=== PATIENT | male | born 1995 | race African-American/Black ===

== ENCOUNTER 2019-04-23 18:32 | Emergency (ER) | payer SELFPAY ==
--- NOTE | 2019-04-23 19:04 | EDM.PDOC ---
ED HPI GENERAL MEDICAL PROBLEM - General Chief Complaint: Respiratory Problem Stated Complaint: COUGH Time Seen by Provider: 04/23/19 18:58 - History of Present Illness INITIAL COMMENTS - FREE TEXT/NARRATIVE: 23-year-old male presents the emergency room with worsening cough. Patient thinks he has been exposed to the flu. He has had a worsening cough over the last 4 days he is not aware of any fevers or chills. The cough is somewhat dry and irritating. He does not believe he had a flu shot this year. Patient significant other is doing better with Phenergan and codeine and he was hoping to get a little bit of this we can get some rest at night. Throat Pain Score (Numeric/FACES): 3 - Related Data Allergies Allergy/AdvReac Type Severity Reaction Status Date / Time No Known Allergies Allergy Verified 04/23/19 18:46 Home Meds: Home Meds Codeine/Promethazine [Phenergan with Codeine] 5 ml PO Q4HR #80 cup 04/23/19 [Rx] Past Medical History - Past Health History Medical/Surgical History: Denies Medical/Surgical History - Past Surgical History HEENT Surgical History: Reports: Other (See Below) Other HEENT Surgeries/Procedures: root canal Social & Family History - Tobacco Use Smoking Status *Q: Never Smoker Second Hand Smoke Exposure: No - Caffeine Use Caffeine Use: Reports: None - Recreational Drug Use Recreational Drug Use: No ED ROS GENERAL - Review of Systems Review Of Systems: See Below Constitutional: Reports: No Symptoms HEENT: Reports: No Symptoms Respiratory: Reports: Cough. Denies: Shortness of Breath, Sputum Cardiovascular: Reports: No Symptoms Endocrine: Reports: No Symptoms GI/Abdominal: Reports: No Symptoms ED EXAM, GENERAL - Physical Exam Exam: See Below Exam Limited By: No Limitations General Appearance: Alert, No Apparent Distress Eye Exam: Bilateral Eye: Normal Inspection Ears: Normal External Exam, Normal Canal, Hearing Grossly Normal, Normal TMs Nose: Normal Inspection, Normal Mucosa, No Blood Throat/Mouth: Normal Inspection, Normal Lips, Normal Teeth, Normal Gums, Normal Oropharynx, Normal Voice, No Airway Compromise Head: Atraumatic, Normocephalic Neck: Normal Inspection, Supple, Non-Tender, Full Range of Motion. No: Lymphadenopathy (L), Lymphadenopathy (R) Respiratory/Chest: No Respiratory Distress, Lungs Clear, Normal Breath Sounds Cardiovascular: Regular Rate, Rhythm, No Edema, No Murmur GI/Abdominal: Normal Bowel Sounds, Soft, Non-Tender Course - Vital Signs Last Recorded V/S: Last Vital Signs Temp 36.6 C 04/23/19 18:44 Pulse 71 04/23/19 18:44 Resp 18 04/23/19 18:44 BP 137/77 04/23/19 18:44 Pulse Ox 99 04/23/19 18:44 - Re-Assessments/Exams Free Text/Narrative Re-Assessment/Exam: 04/23/19 19:21 Patient's influenza screen is negative. Discussed the pros and cons of a chest x-ray and we decided to hold off on this as I do not think it is can be very helpful he will be started on albuterol MDI to help with his bronchitis. And I have no problems given him some Phenergan with codeine for nighttime use so he can get some rest. Departure - Departure Time of Disposition: 19:22 Disposition: Home, Self-Care 01 Clinical Impression: Viral illness, Bronchitis - Discharge Information Prescriptions: Codeine/Promethazine [Phenergan with Codeine] 5 ml PO Q4HR #80 cup Referrals: PCP,None [Primary Care Provider] - Forms: ED Department Discharge Additional Instructions: To the emergency room with any questions problems or worsening symptoms. Follow-up in the hospital clinic early this next week for recheck if needed. Use the albuterol inhaler 2 puffs every 4 hours while awake until completely better. Use the Phenergan with codeine 1 teaspoon every 4-6 hours as needed for cough. Use your Aleve 2 tablets twice daily with your morning and evening meals this will help with the aches and pains and Have a better rest your day and a happy new year. Sepsis Event Note - Evaluation Sepsis Screening Result: No Definite Risk - Focused Exam Vital Signs: Vital Signs Temp Pulse Resp BP Pulse Ox 04/23/19 18:44 36.6 C 71 18 137/77 99 Date Exam was Performed: 04/23/19 Time Exam was Performed: 19:17
[2019-04-23] MEDS ORDERED: Albuterol 6.7 GM Inhaler INH ONE (19:19)
== END 2019-04-23 19:35 | disposition home or self-care (01) ==
LOC: JD.ED 18:32
DX: J40 Bronchitis, not specified as acute or chronic (principal); B34.9 Viral infection, unspecified
CPT/HCPCS: 87804; 99283; A9270; 99282

== ENCOUNTER 2020-11-08 10:13 | Emergency (ER) | payer SELFPAY ==
[2020-11-08] MEDS ORDERED: Sodium Chloride 0.9% 10 ML Syringe FLUSH PRN (10:41)
[2020-11-08] MEDS ORDERED: Ondansetron 4 MG/2 ML SDV IVPUSH ONE (10:41)
[2020-11-08] MEDS ORDERED: Sodium Chloride 0.9% 1,000 ML IV STA (10:41)
--- NOTE | 2020-11-08 12:45 | EDM.PDOC ---
ED HPI GENERAL MEDICAL PROBLEM - General Chief Complaint: Gastrointestinal Problem Stated Complaint: DIZZY/VOMITING Time Seen by Provider: 11/08/20 10:35 Source of Information: Reports: Patient History Limitations: Reports: No Limitations - History of Present Illness INITIAL COMMENTS - FREE TEXT/NARRATIVE: The patient presents with, nausea, vomiting, diarrhea and stomach cramps. This started last night with night sweats. He has not been around anyone who is sick. He did not eat any bad food. He has no fever, chest pain, shortness of breath. Onset: Gradual Duration: Day(s): (last night) Location: Reports: Abdomen Quality: Reports: Other (cramps) Severity: Moderate Improves with: Reports: None Worsens with: Reports: None Associated Symptoms: Reports: Fever/Chills, Nausea/Vomiting. Denies: Chest Pain, Cough, Headaches, Shortness of Breath - Related Data Allergies Allergy/AdvReac Type Severity Reaction Status Date / Time No Known Allergies Allergy Verified 11/08/20 10:32 Home Meds: Home Meds Ondansetron [Zofran ODT] 4 mg PO Q6H PRN #20 tab.dis 11/08/20 [Rx] Past Medical History - Past Health History Medical/Surgical History: Denies Medical/Surgical History - Past Surgical History HEENT Surgical History: Reports: Other (See Below) Other HEENT Surgeries/Procedures: root canal Social & Family History - Tobacco Use Tobacco Use Status *Q: Current Every Day Tobacco User Years of Tobacco use: 7 Packs/Tins Daily: 0.1 - Caffeine Use Caffeine Use: Reports: None - Recreational Drug Use Recreational Drug Use: No ED ROS GENERAL - Review of Systems Review Of Systems: See Below Constitutional: Reports: Chills. Denies: Fever HEENT: Reports: No Symptoms Respiratory: Reports: No Symptoms Cardiovascular: Reports: No Symptoms Endocrine: Reports: No Symptoms GI/Abdominal: Reports: Abdominal Pain, Diarrhea, Nausea, Vomiting : Reports: No Symptoms Musculoskeletal: Reports: No Symptoms ED EXAM, GI/ABD - Physical Exam Exam: See Below Exam Limited By: No Limitations General Appearance: Alert, No Apparent Distress Ears: Normal External Exam Nose: Normal Inspection Head: Atraumatic, Normocephalic Neck: Normal Inspection Respiratory/Chest: No Respiratory Distress, Lungs Clear, Normal Breath Sounds Cardiovascular: Regular Rate, Rhythm, No Edema, No Murmur GI/Abdominal Exam: Soft, Non-Tender, No Organomegaly, No Mass Course - Vital Signs Last Recorded V/S: Last Vital Signs Temp 97.3 F 11/08/20 10:29 Pulse 85 11/08/20 10:29 Resp 18 11/08/20 10:29 BP 126/83 11/08/20 10:29 Pulse Ox 96 11/08/20 10:29 - Orders/Labs/Meds Orders: Active Orders 24 hr Category Date Time Status Peripheral IV Care [RC] . DIRECTED Care 11/08/20 10:41 Active Sodium Chloride 0.9% [Saline Flush] Med 11/08/20 10:41 Active 10 ml FLUSH ASDIRECTED PRN ED Antiemetic Medication Reflex [OM.PC] Stat Oth 11/08/20 10:41 Ordered Peripheral IV Insertion Adult [OM.PC] Stat Oth 11/08/20 10:41 Ordered Medication Orders Sodium Chloride (Sodium Chloride 0.9% 10 Ml Syringe) 10 ml FLUSH ASDIRECTED PRN PRN Reason: Keep Vein Open Last Admin: 11/08/20 10:48 Dose: 10 ml Documented by: BOBBI Labs: Laboratory Tests 11/08/20 11/08/20 11/08/20 Range/Units 10:39 10:39 10:41 WBC 6.24 (4.23-9.07) K/mm3 RBC 4.73 (4.63-6.08) M/mm3 Hgb 15.1 (13.7-17.5) gm/dl Hct 43.8 (40.1-51.0) % MCV 92.6 H (79.0-92.2) fl MCH 31.9 (25.7-32.2) pg MCHC 34.5 (32.2-35.5) g/dl RDW Std Deviation 38.5 (35.1-43.9) fL Plt Count 318 (163-337) K/mm3 MPV 9.4 (9.4-12.3) fl Neut % (Auto) 62.3 (34.0-67.9) % Lymph % (Auto) 30.9 (21.8-53.1) % [place] % (Auto) 4.6 L (5.3-12.2) % Eos % (Auto) 1.9 (0.8-7.0) Baso % (Auto) 0.3 (0.1-1.2) % Neut # (Auto) 3.88 (1.78-5.38) K/mm3 Lymph # (Auto) 1.93 (1.32-3.57) K/mm3 [place] # (Auto) 0.29 L (0.30-0.82) K/mm3 Eos # (Auto) 0.12 (0.04-0.54) K/mm3 Baso # (Auto) 0.02 (0.01-0.08) K/mm3 Sodium 143 (136-145) mEq/L Potassium 3.8 (3.5-5.1) mEq/L Chloride 106 (98-107) mEq/L Carbon Dioxide 28 (21-32) mEq/L Anion Gap 12.8 (5-15) BUN 13 (7-18) mg/dL Creatinine 1.2 (0.7-1.3) mg/dL Est Cr Clr Drug Dosing 94.92 mL/min Estimated GFR (MDRD) > 60 (>60) mL/min BUN/Creatinine Ratio 10.8 L (14-18) Glucose 91 (70-99) mg/dL Calcium 9.4 (8.5-10.1) mg/dL Total Bilirubin 1.9 H (0.2-1.0) mg/dL AST 16 (15-37) U/L ALT 38 (16-63) U/L Alkaline Phosphatase 59 (46-116) U/L Total Protein 7.9 (6.4-8.2) g/dl Albumin 4.5 (3.4-5.0) g/dl Globulin 3.4 gm/dL Albumin/Globulin Ratio 1.3 (1-2) Lipase 52 L (73-393) U/L SARS-CoV-2 RNA (YANETH) Negative (NEGATIVE) Meds: Medications Generic Name Dose Route Start Last Admin Trade Name Freq PRN Reason Stop Dose Admin Sodium Chloride 10 ml 11/08/20 10:41 11/08/20 10:48 Sodium Chloride 0.9% 10 Ml Syringe FLUSH 10 ml ASDIRECTED PRN Administration Keep Vein Open Discontinued Medications Generic Name Dose Route Start Last Admin Trade Name Freq PRN Reason Stop Dose Admin Sodium Chloride 1,000 mls @ 1,000 mls/hr 11/08/20 10:41 11/08/20 10:48 Normal Saline IV 11/08/20 11:40 1,000 mls/hr .BOLUS STA Administration Ondansetron HCl 4 mg 11/08/20 10:41 11/08/20 10:48 Ondansetron 4 Mg/2 Ml Sdv IVPUSH 11/08/20 10:42 4 mg ONETIME ONE Administration - Re-Assessments/Exams Free Text/Narrative Re-Assessment/Exam: 11/08/20 12:44 I ordered an IV NS 1L bolus, zofran 4mg IV, and labs. His CBC and CMP look good. His COVID 19 is negative. He feels better. I will discharge him home with some zofran. Departure - Departure Time of Disposition: 12:50 Disposition: Home, Self-Care 01 Condition: Good Clinical Impression: Gastroenteritis - Discharge Information *PRESCRIPTION DRUG MONITORING PROGRAM REVIEWED*: Not Applicable *COPY OF PRESCRIPTION DRUG MONITORING REPORT IN PATIENT ANNE: Not Applicable Prescriptions: Ondansetron [Zofran ODT] 4 mg PO Q6H PRN #20 tab.dis PRN Reason: Nausea\vomiting Referrals: PCP,None [Primary Care Provider] - Monica Dover, [employer] [Nurse Practitioner] - 1 Week Additional Instructions: Drink plenty of fluids. Take the zofran every 6 hours as needed for nausea and vomiting. Get some rest. Please return if you are worse. Sepsis Event Note (ED) - Evaluation Sepsis Screening Result: No Definite Risk - Focused Exam Vital Signs: Vital Signs Temp Pulse Resp BP Pulse Ox 11/08/20 10:29 97.3 F 85 18 126/83 96 - My Orders Last 24 Hours: My Active Orders 11/08/20 10:41 Peripheral IV Care [RC] . DIRECTED Sodium Chloride 0.9% [Saline Flush] 10 ml FLUSH ASDIRECTED PRN ED Antiemetic Medication Reflex [OM.PC] Stat Peripheral IV Insertion Adult [OM.PC] Stat - Assessment/Plan Last 24 Hours: My Active Orders 11/08/20 10:41 Peripheral IV Care [RC] . DIRECTED Sodium Chloride 0.9% [Saline Flush] 10 ml FLUSH ASDIRECTED PRN ED Antiemetic Medication Reflex [OM.PC] Stat Peripheral IV Insertion Adult [OM.PC] Stat
== END 2020-11-08 13:04 | disposition home or self-care (01) ==
LOC: JD.ED 10:13
DX: K52.9 Noninfective gastroenteritis and colitis, unspecified (principal); Z72.0 Tobacco use; Z20.822 Contact with and (suspected) exposure to COVID-19
CPT/HCPCS: 36415; 80053; 83690; 85025; 87635; 96374; 99284; J2405; J7030; 99283; U0002